=== PATIENT | male | born 1960 | race Caucasian/White ===

== ENCOUNTER 2020-08-24 13:05 | Emergency (ER) | payer OTHER ==
[~2020-08-24] VITALS: Ht 165.1 cm; Wt 72.6 kg
[~2020-08-24 13:05] MED LIST: ALFU10 PO; ASPI81CH PO; ATOR10 PO; Bactrim Ds Tab1 EACH PO; CLOP75 PO; CYCL10 PO; ERYT.5TO OD; FAMO20 PO; HYDACE5 PO; Keflex500 MG PO; LAMO25 PO; LEVE500 PO; Mobic15 MG PO; NAPR250 PO; OXYACE5T PO; PHENY100ER PO; Percocet 10-321 EACH PO; Prilosec20 MG PO; RXOXYACE PO; SUCR1 PO; VARE1 PO; Valium5 MG PO; ZOLP12.5 PO
[2020-08-24] MEDS ORDERED: ERYT.5TO LEFTEYE (15:27)
== END 2020-08-24 15:32 | disposition home or self-care (01) ==
LOC: ER 13:05
DX: S05.02XA Injury of conjunctiva and corneal abrasion without foreign body, left eye, initial encounter (principal); F17.210 Nicotine dependence, cigarettes, uncomplicated; Z88.5 Allergy status to narcotic agent; Z79.82 Long term (current) use of aspirin; Z79.02 Long term (current) use of antithrombotics/antiplatelets; Z79.899 Other long term (current) drug therapy; W45.8XXA Other foreign body or object entering through skin, initial encounter
CPT/HCPCS: 99283

== ENCOUNTER 2023-09-06 12:59 | Day surgery (SDC) | payer OTHER ==
[~2023-09-06] VITALS: Ht 165.1 cm; Wt 64.6 kg
[~2023-09-06 12:59] MED LIST changes: +DIAZEPAM5 M2 PO; +ERYT.5TO LEFTEYE; +IBUP600 PO; +LAMOTRIGINE250 MG PO; +LEVETIRACETAM PO; +OXYCODONE-ACET1 EAC3 PO; +Oxybutynin Chlo10 MG PO; +PLAVIX75 MG PO; +Robaxin750 MG PO; +VITAMIN D31000 UNI1 PO
[2023-09-06 15:19] VITALS: BP 122/89
== END 2023-09-06 15:21 | disposition home or self-care (01) ==
LOC: ORSCSDS 12:59
PROVIDERS: Surgery
PROC: 0DBH8ZX Excision of Cecum, Via Natural or Artificial Opening Endoscopic, Diagnostic (ICD-10-PCS; principal; 2023-09-06 14:30)
PROC: 0DBK8ZX Excision of Ascending Colon, Via Natural or Artificial Opening Endoscopic, Diagnostic (ICD-10-PCS; principal; 2023-09-06 14:30)
PROC: 0DBP8ZX Excision of Rectum, Via Natural or Artificial Opening Endoscopic, Diagnostic (ICD-10-PCS; principal; 2023-09-06 14:30)
DX: Z12.11 Encounter for screening for malignant neoplasm of colon (principal); Z86.010 Personal history of colon polyps; D12.0 Benign neoplasm of cecum; D12.2 Benign neoplasm of ascending colon; K62.1 Rectal polyp; Z79.02 Long term (current) use of antithrombotics/antiplatelets; G40.909 Epilepsy, unspecified, not intractable, without status epilepticus; F17.210 Nicotine dependence, cigarettes, uncomplicated; Z79.899 Other long term (current) drug therapy
CPT/HCPCS: 88305; J0461; J2001; J2405; J2704; J7120; Q9968

== ENCOUNTER 2024-10-20 09:55 | Emergency (ER) | payer OTHER ==
[~2024-10-20] VITALS: Ht 165.1 cm; Wt 68.0 kg
[2024-10-20 10:28] VITALS: BP 128/77
[2024-10-20] MEDS ORDERED: Ketorolac Tromethamine 15mg Vial IM ONE (10:30)
[2024-10-20] MEDS ORDERED: TRAM50 PO (12:00)
[2024-10-20] MEDS ORDERED: LIDO700A20 TOP (12:00)
== END 2024-10-20 12:09 | disposition home or self-care (01) ==
LOC: ER 09:55
DX: S20.211A Contusion of right front wall of thorax, initial encounter (principal); M25.551 Pain in right hip; F17.210 Nicotine dependence, cigarettes, uncomplicated; W18.30XA Fall on same level, unspecified, initial encounter
CPT/HCPCS: 71100; 73502; 96372; 99283-25; J1885

== ENCOUNTER 2025-04-29 05:17 | Emergency (ER) | payer OTHER ==
[~2025-04-29] VITALS: Ht 165.1 cm; Wt 72.6 kg
[~2025-04-29 05:17] MED LIST changes: +CEPH500 PO; +DIAZ2 PO; +LIDO700A20 TOP; +TRAM50 PO
[2025-04-29 05:43] VITALS: BP 129/85
[2025-04-29] MEDS ORDERED: RX Prepack 6 Tabs Oxycodone 5mg UD ONE (06:45)
[2025-04-29] MEDS ORDERED: ONDA4 PO (06:47)
[2025-04-29] MEDS ORDERED: Ondansetron 4 MG SoluTab SL ONE (06:50)
== END 2025-04-29 06:55 | disposition home or self-care (01) ==
LOC: ER 05:17
DX: T63.441A Toxic effect of venom of bees, accidental (unintentional), initial encounter (principal); L53.0 Toxic erythema; R22.31 Localized swelling, mass and lump, right upper limb
CPT/HCPCS: 99282; A9270

== ENCOUNTER 2025-05-12 06:10 | Emergency (ER) | payer OTHER ==
[~2025-05-12] VITALS: Ht 165.1 cm; Wt 70.3 kg
[~2025-05-12 06:10] MED LIST changes: +ONDA4 PO
[2025-05-12 07:04] LABS: BASOPHILS ABSOLUTE AUTO 0.08 K/mm3 (0.00-0.23); BASOPHILS PERCENT AUTO 2 % (0-2); EOSINOPHILS ABSOLUTE AUTO 0.62 K/mm3 (0.00-0.68); EOSINOPHILS PERCENT AUTO 12 % (0-6); Hematocrit 41.5 % (37.0-53.0); Hemoglobin 13.9 g/dL (13.5-17.5); IMMATURE GRAN ABSOLUTE AUTO 0.04 K/mm3 (0.00-0.10); IMMATURE GRAN PERCENT AUTO 1 % (0-1); LYMPHOCYTES ABSOLUTE AUTO 1.50 K/mm3 (0.84-5.20); LYMPHOCYTES PERCENT AUTO 29 % (21-46); MONOCYTES ABSOLUTE AUTO 0.36 K/mm3 (0.16-1.47); MONOCYTES PERCENT AUTO 7 % (4-13); Mean Corpuscular HGB Conc 33.5 g/dL (31.5-36.5); Mean Corpuscular Volume 95 fL (80-100); NEUTROPHILS ABSOLUTE AUTO 2.52 K/mm3 (1.96-9.15); NEUTROPHILS PERCENT AUTO 49 % (41-73); NRBC ABSOLUTE 0.00 K/mm3 (0.00-0.02); NRBC Auto 0.0 /100 WBC (0.0-0.2); RDW Coefficient Variation 13.0 % (11.7-14.2); RDW Standard Deviation 45.9 fL (35.1-46.3)
[2025-05-12 07:18] LABS: Source, Urine Clean Catch
[2025-05-12 07:29] LABS: Bilirubin, Urine Neg (Neg); Color, Urine Yellow (P-Yellow); Glucose Qualitative, Urine Neg (Neg); Ketones, Urine Neg (Neg); Leukocyte Esterase, Urine Neg (Neg); Protein, Urine 2+ (Neg); Specific Gravity, Urine 1.030 (1.003-1.022); Urobilinogen, Urine NORM (Normal)
[2025-05-12 07:44] LABS: U Amphetamine Screen DETECTED; U Barbituate Screen Not Detected; U Benzodiazapine Screen Not Detected; U Buprenorphine Screen Not Detected; U Cannabinoids Screen Not Detected; U Cocaine Screen Not Detected; U Methadone Screen Not Detected; U Methamphetamine Screen DETECTED; U Opiates Screen Not Detected; U Oxycodone Screen Not Detected; U Phencyclidine Screen Not Detected
[2025-05-12 07:48] LABS: Red Blood Cells, Urine 0-2 /hpf (0-2); White Blood Cells, Urine 0-2 /hpf (0-5)
[2025-05-12 07:54] LABS: Alanine Aminotransfer (ALT/SGP 31 U/L (12-78); Albumin, Blood 3.3 g/dL (3.4-5.0); Albumin/Globulin Ratio 0.9 (0.8-1.8); Anion Gap 11 mmol/L (3-11); Aspartate Aminotrans (AST/SGOT 35 U/L (12-37); Bilirubin, Total 0.7 mg/dL (0.1-1.0); Blood Urea Nitrogen 18 mg/dL (8-24); CO2, Blood 26 mmol/L (21-32); Calcium, Blood 8.7 mg/dL (8.5-10.1); Chloride, Blood 106 mmol/L (98-108); Creatinine, Blood 1.01 mg/dL (0.60-1.20); Globulin, Blood 3.6 g/dL (2.2-4.0); Glucose, Blood 108 mg/dL (70-99); Potassium, Blood 4.4 mmol/L (3.5-5.5); Sodium, Blood 139 mmol/L (136-145); Total Protein, Blood 6.9 g/dL (6.4-8.2)
[2025-05-12 08:30] VITALS: BP 131/63
[2025-05-12 15:58] LABS: Ethanol (Alcohol), Blood, Med <3 mg/dL
== END 2025-05-12 08:45 | disposition home or self-care (01) ==
LOC: ER 06:10
PROVIDERS: Student in an Organized Health Care Education/Training Program
DX: F15.10 Other stimulant abuse, uncomplicated (principal); E78.5 Hyperlipidemia, unspecified; H54.61 Unqualified visual loss, right eye, normal vision left eye; F17.210 Nicotine dependence, cigarettes, uncomplicated; Z86.73 Personal history of transient ischemic attack (TIA), and cerebral infarction without residual deficits; Z88.5 Allergy status to narcotic agent; Z79.02 Long term (current) use of antithrombotics/antiplatelets; Z79.899 Other long term (current) drug therapy
CPT/HCPCS: 80053; 80320; 81001; 85025; 99282